=== PATIENT | male | born 1970 | race Caucasian/White ===

== ENCOUNTER → 2021-08-26 | Outpatient (CLI) | payer BC, OTHER ==
--- NOTE | 2021-08-26 12:14 | CONS ---
CONSULTATION DATE OF SERVICE: 08/26/2021 This 51-year-old gentleman has [facility] for possible obstructive sleep apnea-hypopnea syndrome. HISTORY OF PRESENT ILLNESS/SLEEP-WAKE EVALUATION: Patient's usual sleep schedule is from 10:30 or 11 p.m. until 6:30 or 7 a.m. on weekdays and from 11 p.m. to 8 or 8:30 a.m. on weekends. No problems with falling asleep, although he has a TV set in the bedroom. He is trying to sleep on the side position; on that position he has less snoring. On the back, his snoring is very loud and he has episodes of stopped breathing during sleep, and he feels he has episodes of gasping for air. Also he has been told that he has episodes of stopped breathing during sleep. He wakes up from sleep up to 4 times with 2 episodes of nocturia. No history of hypnagogic hallucinations, sleep paralysis or cataplexy. During the day, the patient may feel sleepiness. Mcdermott Sleepiness Scale is increased to 11, but he usually does not take any naps. PAST MEDICAL HISTORY: Positive for bilateral kidney stones and cleft palate. PAST SURGICAL HISTORY: Surgery for correction of cleft palate at age of 6. Surgical treatment of kidney stones, eye surgery, hernia repair. MEDICATIONS: None. SOCIAL HISTORY: Negative for smoking. Alcohol consumption occasional. FAMILY HISTORY: Arthritis, snoring, cancer. REVIEW OF SYSTEMS: Multiple awakenings from sleep, loud snoring, sleepiness during the day. No fevers. No double vision. No recent chest pain. No shortness of breath. No abdominal pain. No bleeding episodes. No blood in the urine. No seizure episodes. PHYSICAL EXAMINATION: GENERAL: Pleasant gentleman without distress. VITAL SIGNS: BP 128/84, HR 81, RR 16, height 5 feet 9-3/4 inches, weight 210.6 pounds, body mass index 30.3, temperature 97.5, oxygen saturation at room air 97%. HEENT: PERRLA, EOMI, evaluation of oropharynx showed tongue protrudes midline. Low position of soft palate; Mallampati III. NECK: Supple, no JVD. Thyroid is not palpable. Neck is wide; 17 inches in circumference. LUNGS: Clear to percussion and to auscultation. Good air exchange. No wheezing or rhonchi. HEART: S1, S2 regular. No murmurs, gallops, or rubs. ABDOMEN: Soft and nontender. Bowel sounds are present. No organomegaly appreciated. EXTREMITIES: No clubbing or cyanosis. TOBACCO CUTTER: Awake, alert, and oriented X3. Cranial nerves 2 to 7 intact. There is no fasciculation or atrophy. noted. No focal deficits observed. IMPRESSION: 1. Loud snoring, witnessed episodes of stopped breathing during sleep, awakenings from sleep with gasping for air, multiple awakenings from sleep, low position of soft palate, Mallampati III, wide neck, 17 inches in circumference, sleepiness, Mcdermott Sleepiness Scale increased to 11; obstructive sleep apnea-hypopnea syndrome. 2. History of cleft palate, status post correction at age of 6. 3. History of bilateral kidney stones, treated surgically. 4. Status post eye surgery. 5. Status post hernia repair. PLAN: 1. Home sleep apnea test for evaluation of patient's breathing during sleep to confirm obstructive sleep apnea-hypopnea syndrome. 2. CPAP/BiPAP titration if sleep study confirms obstructive sleep apnea-hypopnea syndrome. 3. Preferable position during sleep on the side. 4. No driving if patient feels any sleepiness. 5. I will see patient for follow up visit to explain results of testing and following plan. Sincerely, Klaus Chang MD, PhD, FAASM Diplomat of [employer] [employer] Sleep Medicine [employer] of [place] [employer] [facility] [place] MMODL / IJN: [id number] /
== END ==
LOC: SLEEP 09:52
PROVIDERS: ATTEND Internal Medicine
DX: G47.33 Obstructive sleep apnea (adult) (pediatric) (principal); Z87.730 Personal history of (corrected) cleft lip and palate; Z87.442 Personal history of urinary calculi; Z98.890 Other specified postprocedural states
CPT/HCPCS: 99202